=== PATIENT | female | born 1970 | race Caucasian/White ===

== ENCOUNTER → 2016-06-28 12:14 | Outpatient (CLI) | payer MEDICARE | END | disposition home or self-care (01) | LOC: D.RAD 06-23 10:30 | DX: M54.5 Low back pain (principal) ==

== ENCOUNTER 2018-01-18 08:00 | Outpatient (CLI) | payer MEDICARE | END 2018-01-18 09:00 | disposition home or self-care (01) | LOC: D.MAMMO 08:00 | DX: Z12.31 Encounter for screening mammogram for malignant neoplasm of breast (principal) ==

== ENCOUNTER 2019-12-04 17:30 | Outpatient (CLI) | payer OTHER | END 2019-12-04 23:59 | disposition home or self-care (01) | LOC: D.MAMMO 17:30 | PROVIDERS: ATTEND Nurse Practitioner Family | DX: Z12.31 Encounter for screening mammogram for malignant neoplasm of breast (principal) ==